=== PATIENT | female | born 1970 | race Caucasian/White ===

== ENCOUNTER → 2016-07-30 | Outpatient (CLI) | payer BC ==
[~2016-07-30] MED LIST: MULTIVITAMIN1 UDCAP PO; NICORETTE4 MG BC; [UNRECOGNIZED DRUG - OTHER]; [UNRECOGNIZED DRUG - REMARK]
--- NOTE | ~2016-07-30 | MY11 ---
[facility] A Service of [facility] RADIOLOGY TEXT RESULTS PATIENT: MARYAM HUERTA LOCATION: [facility] : 66 UNIT #: [id number] AGE: [address]: Vanessa Maki MD SEX: F ORDER DR: [id number] [facility] [address] [place], [place] [address] [id number] O MR#: [id number] Acc #: [id number] NAME: MARYAM HUERTA : 1970 SEX: F STUDY DATE/TIME: 07/30/2016 10:06 UNIT: [facility] ROOM: STUDY DESCRIPTION: MY Mammogram Screening [facility] Attending Physician: Vanessa Maki M.D. Ordering Physician: Vanessa Maki M.D. Primary Care Physician: Vanessa Maki M.D. MEDICAL IMAGING REPORT This report is preliminary unless electronic signature is present EXAM Digital screening mammogram 07/30/2016, [facility]. HISTORY 46-year-old woman; positive family history. Annual screening. COMPARISON Comparison screening mammograms date to 06/03/2009, with most recent screening 07/29/2015. Diagnostic right mammogram 06/11/2009 and 11/27/2009. FINDINGS Digital imaging of each breast was completed, utilizing screening protocol. Review includes FDA-approved CAD device. Breast parenchyma bilaterally is fatty replaced. Focal parenchymal opacity centrally located right breast is less conspicuous on this year's exam. I see no interval occurring microcalcifications and no architectural distortion. IMPRESSION Negative mammogram. Annual screening recommended. Patients over the age of 40 are entered into a reminder system with target due date for the next mammogram. A result letter will also be sent to the patient. BIRADS: 1 Negative Dictated by... Luis Antonio Wooten M.D. [facility] A Service of [facility] RADIOLOGY TEXT RESULTS PATIENT: MARYAM HUERTA LOCATION: [facility] : 66 UNIT #: [id number] AGE: [address]: Vanessa Maki MD SEX: F ORDER DR: THIS IS AN ELECTRONICALLY VERIFIED REPORT Luis Antonio Wooten M.D. at 07/30/2016 12:13 PM CATRINA/trev TD: 07/30/2016 12:03 JOB #: [id number] MEDICAL IMAGING REPORT Page 1 of 1 COPY
== END | disposition home or self-care (01) ==
LOC: CWCC 09:44
DX: Z12.31 Encounter for screening mammogram for malignant neoplasm of breast (principal)
CPT/HCPCS: G0202